=== PATIENT | female | born 1990 | race Two or more races ===

== ENCOUNTER 2017-04-13 20:22 | Emergency (ER) | payer MEDICAID ==
[~2017-04-13] VITALS: Ht 149.9 cm; Wt 59.0 kg
[~2017-04-13 20:22] MED LIST: ACETAMINOPHEN500 M3 ORAL
[2017-04-13 21:30] VITALS: BP 129/79
[2017-04-13] MEDS ORDERED: GUAIFENESIN-CO118 M1 ORAL (21:42)
[2017-04-13] MEDS ORDERED: IBUPROFEN600 MG ORAL (21:42)
[2017-04-13] MEDS ORDERED: NEXAFED30 MG ORAL (21:42)
--- NOTE | 2017-04-13 21:42 | Emergency Room Report ---
History of Present Illness General Chief Complaint: Sore Throat Source: Patient Present Illness [facility] This is a 26-year-old female presents with chief complaint of sore throat and cough. Onset today. Also losing her voice. No nausea no vomiting. No chest pain. Pain is 9/10. Worse with swallowing. Worse with talking. Allergies: Coded Allergies: No Known Allergies (Unverified , 03/06/16) Patient History Past Medical History: see triage record, old chart reviewed Past Surgical History: none Pertinent Family History: none Social History: Denies: smoking Last Menstrual Period: mar 01 Now: No : 3 Immunizations: other Reviewed Nursing Documentation: PMH: Agreed, PSxH: Agreed Nursing Documentation-PMH Past Medical History: No Stated History Review of Systems Eye: Denies: eye pain, blurred vision ENT: Reports: throat pain, Denies: ear pain, nose congestion, throat swelling Respiratory: Reports: cough, Denies: shortness of breath Cardiovascular: Denies: chest pain, palpitations Gastrointestinal: Denies: abdominal pain, diarrhea, nausea, vomiting Musculoskeletal: Denies: back pain, joint pain Skin: Denies: rash Neurological: Denies: headache, numbness Endocrine: Denies: increased thirst, increased urine Hematologic/Lymphatic: Denies: easy bruising All Other Systems: negative except mentioned in HPI Physical Exam Vital Signs Date Time Temp Pulse Resp B/P (MAP) Pulse Ox O2 Delivery O2 Flow Rate FiO2 04/13/17 21:19 97.5 96 18 129/79 98 Room Air vitals normal Sp02 EP Interpretation: reviewed, normal General Appearance: well appearing, no apparent distress, alert Head: normocephalic, atraumatic Eyes: bilateral eye PERRL, bilateral eye EOMI ENT: hearing grossly normal, tonsillar swelling, pharyngeal erythema, other - Bilateral TMs with fluid Neck: full range of motion, supple, no meningismus Respiratory: chest non-tender, lungs clear, normal breath sounds Cardiovascular #1: regular rate, rhythm, no murmur Gastrointestinal: normal bowel sounds, non tender, no mass, no organomegaly, no bruit, non-distended Musculoskeletal: back normal, gait/station normal, normal range of motion Psychiatric: mood/affect normal Skin: warm/dry Medical Decision Making Diagnostic Impression: Primary Impression: Acute viral pharyngitis ER Course Patient present with a viral illness. No evidence of strep throat, of peritonsillar abscess or retropharyngeal abscess or [place] angina. We'll treat symptomatically. We'll discharge home. Last Vital Signs Date Time Temp Pulse Resp B/P (MAP) Pulse Ox O2 Delivery O2 Flow Rate FiO2 04/13/17 21:19 97.5 96 18 129/79 98 Room Air Status: unchanged Disposition: HOME, SELF-CARE Condition: Stable Scripts Pseudoephedrine Hcl* (NEXAFED*) 30 Mg Tablet 30 MG ORAL Q6H Y for congestion, #20 TAB Prov: ASH JUAREZ M.D. 04/13/17 Guaifenesin/Codeine Phos* (ROBITUSSIN AC*) 118 Ml Liquid 1 TSP ORAL Q4H Y for For Cough, #118 ML 0 Refills Prov: ASH JUAREZ M.D. 04/13/17 Ibuprofen* (MOTRIN*) 600 Mg Tablet 600 MG ORAL THREE TIMES A DAY, #30 TAB 0 Refills Prov: ASH JUAREZ M.D. 04/13/17 Patient Instructions: Laryngitis Additional Instructions: Followup with your Dr. in 7 days. Increase fluids. Return it worse. ASH JUAREZ M.D. Apr 13, 2017 21:42
[2017-04-13 22:12] VITALS: BP 129/79
== END 2017-04-13 22:12 | disposition home or self-care (01) ==
LOC: EMR 21:38
DX: J02.8 Acute pharyngitis due to other specified organisms (principal); B97.89 Other viral agents as the cause of diseases classified elsewhere
CPT/HCPCS: 99284

== ENCOUNTER 2018-03-04 00:10 | Emergency (ER) | payer MEDICAID, OTHER ==
[~2018-03-04] VITALS: Ht 152.4 cm; Wt 83.0 kg
[~2018-03-04 00:10] MED LIST changes: +GUAIFENESIN-CO118 M1 ORAL; +IBUPROFEN600 MG ORAL; +NEXAFED30 MG ORAL
[2018-03-04 00:42] VITALS: BP 111/70
[2018-03-04] MEDS ORDERED: Metoclopramide 10mg/2ml Inj IVP ONE (01:30)
[2018-03-04 01:50] LABS: BASOPHILS % (AUTO) 0.9 % (0.0-2.0); EOSINOPHILS % (AUTO) 1.6 % (0.0-3.0); HEMATOCRIT 36.2 % (37.0-47.0); HEMOGLOBIN 12.4 G/DL (12.0-16.0); LYMPHOCYTES % (AUTO) 28.4 % (20.0-45.0); MEAN CORPUSCULAR VOLUME 84 FL (80-99); MONOCYTES % (AUTO) 5.2 % (1.0-10.0); NEUTROPHILS % (AUTO) 63.9 % (45.0-75.0); PLATELET COUNT 240 K/UL (150-450); RED BLOOD COUNT 4.29 M/UL (4.20-5.40); RED CELL DISTRIBUTION WIDTH 11.3 % (11.6-14.8); WHITE BLOOD COUNT 11.1 K/UL (4.8-10.8)
[2018-03-04 01:52] LABS: APPEARANCE,URINE CLEAR; BILIRUBIN, URINE NEGATIVE (NEGATIVE); COLOR,URINE PALE YELLOW; GLUCOSE, URINE (UA) NEGATIVE (NEGATIVE); KETONES,URINE NEGATIVE (NEGATIVE); LEUKOCYTE ESTERASE ,URINE 1+ (NEGATIVE); NITRITE,URINE NEGATIVE (NEGATIVE); PH,URINE 5 (4.5-8.0); PROTEIN,URINE NEGATIVE (NEGATIVE); UROBILINOGEN,URINE NORMAL MG/DL (0.0-1.0)
[2018-03-04 02:00] LABS: ANION GAP 9 mmol/L (5-15); BLOOD UREA NITROGEN 13 mg/dL (7-18); CALCIUM 9.2 MG/DL (8.5-10.1); CARBON DIOXIDE 24 MMOL/L (21-32); CHLORIDE 102 MMOL/L (98-107); CREATININE 0.8 MG/DL (0.55-1.30); POTASSIUM 3.7 MMOL/L (3.5-5.1); SODIUM 135 MMOL/L (136-145)
[2018-03-04 02:03] LABS: INR 0.9 (0.9-1.1)
[2018-03-04 02:06] LABS: ALANINE AMINOTRANSFERASE 24 U/L (12-78); ALBUMIN 2.9 G/DL (3.4-5.0); ALBUMIN/GLOBULIN RATIO 0.5 (1.0-2.7); ALKALINE PHOSPHATASE 66 U/L (46-116); ASPARTATE AMINO TRANSFERASE 10 U/L (15-37); BILIRUBIN,TOTAL 0.2 MG/DL (0.2-1.0)
[2018-03-04 02:40] VITALS: BP 120/75
--- NOTE | 2018-03-04 03:34 | Emergency Room Report ---
History of Present Illness General Chief Complaint: Abdominal Pain Source: Patient Present Illness HPI Patient is a 27-year-old female presented after increased abdominal cramping. Patient is approximately 7 weeks . Patient reports having increased spotting for the past 2 weeks. She reports having substernal ultrasound which showed intrauterine . She denies any fever. She reports having increased vomiting. Patient is being treated currently for urinary tract infection with antibiotics. She denies any diarrhea Allergies: Coded Allergies: No Known Allergies (Unverified , 03/06/16) Patient History Past Medical History: see triage record Past Surgical History: Last Menstrual Period: jan 08 Now: Yes Reviewed Nursing Documentation: PMH: Agreed; PSxH: Agreed Nursing Documentation-PMH Past Medical History: No Stated History Review of Systems All Other Systems: negative except mentioned in HPI Physical Exam Vital Signs Date Time Temp Pulse Resp B/P (MAP) Pulse Ox O2 Delivery O2 Flow Rate FiO2 03/04/18 00:23 98.2 102 18 111/70 98 Room Air 03/04/18 00:42 99 Sp02 EP Interpretation: reviewed, normal General Appearance: normal inspection, well appearing, no apparent distress, alert, GCS 15, obese Head: atraumatic ENT: normal ENT inspection, hearing grossly normal, normal voice Neck: normal inspection, full range of motion, supple, no bony tend Respiratory: normal inspection, lungs clear, normal breath sounds, no respiratory distress, no retraction, no wheezing Cardiovascular #1: regular rate, rhythm, no edema Gastrointestinal: normal inspection, normal bowel sounds, non tender, soft, no guarding, no hernia Genitourinary: no CVA tenderness Musculoskeletal: normal inspection, back normal, normal range of motion Neurologic: normal inspection, alert, oriented x3, responsive, internal auditor III-XII nml as tested, speech normal Psychiatric: normal inspection, judgement/insight normal, mood/affect normal Skin: normal inspection, normal color, no rash Medical Decision Making Diagnostic Impression: Primary Impression: Intrauterine Additional Impression: Threatened in first trimester ER Course Patient presented for abdominal pain. Differential diagnosis included was not limited to ruptured ovarian cyst, ovarian torsion, bowel obstruction, hernia, ectopic among others.Because of complexity of patient's case laboratory testing and imaging studies were ordered.The pelvic ultrasound showed intrauterine with heart rate of approximately 160s. The patient was given Reglan as well as IV fluids.The patient was noted to have improvement in her symptoms after IV fluids and medications. The patient is advised to follow-up with her [facility] to return if she began having increased bleeding dizziness or other concerns. Labs Test 03/04/18 01:38 White Blood Count 11.1 K/UL (4.8-10.8) Red Blood Count 4.29 M/UL (4.20-5.40) Hemoglobin 12.4 G/DL (12.0-16.0) Hematocrit 36.2 % (37.0-47.0) Mean Corpuscular Volume 84 FL (80-99) Mean Corpuscular Hemoglobin 28.9 PG (27.0-31.0) Mean Corpuscular Hemoglobin Concent 34.2 G/DL (32.0-36.0) Red Cell Distribution Width 11.3 % (11.6-14.8) Platelet Count 240 K/UL (150-450) Mean Platelet Volume 7.8 FL (6.5-10.1) Neutrophils (%) (Auto) 63.9 % (45.0-75.0) Lymphocytes (%) (Auto) 28.4 % (20.0-45.0) Monocytes (%) (Auto) 5.2 % (1.0-10.0) Eosinophils (%) (Auto) 1.6 % (0.0-3.0) Basophils (%) (Auto) 0.9 % (0.0-2.0) Prothrombin Time 10.0 SEC (9.30-11.50) Prothromb Time International Ratio 0.9 (0.9-1.1) Activated Partial Thromboplast Time 22 SEC (23-33) Urine Color Pale yellow Urine Appearance Clear Urine pH 5 (4.5-8.0) Urine Specific [place] 1.020 (1.005-1.035) Urine Protein Negative (NEGATIVE) Urine Glucose (UA) Negative (NEGATIVE) Urine Ketones Negative (NEGATIVE) Urine Blood 5+ (NEGATIVE) Urine Nitrite Negative (NEGATIVE) Urine Bilirubin Negative (NEGATIVE) Urine Urobilinogen Normal MG/DL (0.0-1.0) Urine Leukocyte Esterase 1+ (NEGATIVE) Urine RBC 2-4 /HPF (0 - 2) Urine WBC 2-4 /HPF (0 - 2) Urine Squamous Epithelial Cells Few /LPF (NONE/OCC) Urine Bacteria Occasional /HPF (NONE) Sodium Level 135 MMOL/L (136-145) Potassium Level 3.7 MMOL/L (3.5-5.1) Chloride Level 102 MMOL/L (98-107) Carbon Dioxide Level 24 MMOL/L (21-32) Anion Gap 9 mmol/L (5-15) Blood Urea Nitrogen 13 mg/dL (7-18) Creatinine 0.8 MG/DL (0.55-1.30) Estimat Glomerular Filtration Rate > 60 mL/min (>60) Glucose Level 97 MG/DL (74-106) Calcium Level 9.2 MG/DL (8.5-10.1) Total Bilirubin 0.2 MG/DL (0.2-1.0) Aspartate Amino Transf (AST/SGOT) 10 U/L (15-37) Alanine Aminotransferase (ALT/SGPT) 24 U/L (12-78) Alkaline Phosphatase 66 U/L (46-116) Total Protein 8.5 G/DL (6.4-8.2) Albumin 2.9 G/DL (3.4-5.0) Globulin 5.6 g/dL Albumin/Globulin Ratio 0.5 (1.0-2.7) Lipase 176 U/L (73-393) Human Chorionic Gonadotropin, Quant 80782 mIU/mL (1-6) Last Vital Signs Date Time Temp Pulse Resp B/P (MAP) Pulse Ox O2 Delivery O2 Flow Rate FiO2 03/04/18 02:40 98.2 18 120/75 98 Room Air 03/04/18 00:42 90 99 Status: improved Disposition: HOME, SELF-CARE Condition: Stable Scripts Doxylamine/Pyridoxine Hcl (MORAIMA WANG 10-10 MG TABLET) 1 Each Tablet. 1 EACH PO [facility], #30 TAB Prov: Steve Carrasco MD 03/04/18 Referrals: [facility],REFERRING (PCP) Steve Carrasco MD Mar 04, 2018 03:34
--- NOTE | 2018-03-04 03:34 | Diagnostic Imaging Report ---
EXAM: US Pelvis Complete, Transabdominal. US Pelvis, Transvaginal. CLINICAL HISTORY: ABD PAIN TECHNIQUE: Real-time transabdominal and transvaginal pelvic ultrasound (complete) with image documentation. Transvaginal imaging was used for better evaluation of the endometrium and adnexa. COMPARISON: No relevant prior studies available. FINDINGS: Endometrium: There is an intrauterine gestational sac containing a yolk sac and pole. crown-rump length corresponds to gestational age of 7 weeks and 5 days. cardiac activity is detected, with a heart rate of 175 bpm. Uterus/cervix: No myometrial lesion. The cervix is within normal limits, measuring up to 3.8 cm in length. Right ovary: Probable corpus luteum cyst measuring up to 12 mm in diameter seen within the right ovary. Normal blood flow. Left ovary: Unremarkable. No mass. Normal blood flow. Free fluid: No free fluid. IMPRESSION: Single live intrauterine gestation measuring 7 weeks and 5 days. Full anatomic survey is recommended at 18-20 weeks gestation..
[2018-03-04] MEDS ORDERED: DICLEGIS DR 101 EACH PO (03:35)
[2018-03-04 04:06] VITALS: BP 124/78
[2018-03-04 04:07] VITALS: BP 125/73
== END 2018-03-04 03:50 | disposition home or self-care (01) ==
LOC: EMR 00:44
DX: O20.0 Threatened abortion (principal); Z3A.01 Less than 8 weeks gestation of pregnancy; O23.41 Unspecified infection of urinary tract in pregnancy, first trimester; O21.9 Vomiting of pregnancy, unspecified
CPT/HCPCS: 36415; 76801; 76830; 80053; 81003; 83690; 84702; 85025; 85610; 85730; 86850; 86900; 86901; 96361; 96374; 99284; J2765